=== PATIENT | male | born 1985 | race American Indian/Alaskan Native ===

== ENCOUNTER 2019-06-28 00:45 | Emergency (ER) | payer OTHER ==
[2019-06-28 00:55] VITALS: BP 151/94
--- NOTE | 2019-06-28 02:50 | Emergency Department Report ---
[facility] Chief Complaint: Eye Problems Stated Complaint: BOTH EYE IRRITATION/SWOLLEN Time Seen by Provider: 06/28/19 01:58 Duration: 3 Days Severity: mild Symptoms: Yes Eye Redness, Yes Mucous Drainage, No Eye Itching, No Blurred Vision, No Preceding URI, No H/O Allergic Rhinitis, No Contact Lens Use, No Trauma, No Fever, No Headache Other History: 33-year-old -[place] male presents to the emergency room for bilateral redness and irritation to eyes and started on Wednesday first started on the right eye now moved to the left eye. Patient states that he took someone is pink I medication but when he is taken 1 dose. Patient complains of watery eyes denies any itchiness or discharge. Does admit to a runny nose. 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 No other past medical history no known drug allergies. ED Review of Systems ROS: Stated complaint: BOTH EYE IRRITATION/SWOLLEN Other details as noted in HPI Comment: All other systems reviewed and negative ED Past Medical Hx - Past Medical History Previous Medical History?: No - Surgical History Past Surgical History?: No - Social History Smoking Status: Never Smoker Substance Use Type: None - Medications Home Medications: Home Medications Medication Instructions Recorded Confirmed Last Taken Type Erythromycin [Erythromycin Ophth 1 applic OP QID #1 tube 06/28/19 Unknown Rx Oint] Ketotifen Fumarate [Zaditor] 5 ml OP QDAY #1 bottle 06/28/19 Unknown Rx [facility] Exam - Exam General: Vital signs noted. No distress. Alert and acting appropriately. Eye Exam: Both Injection, Neither Eye Foreign Body, Neither Mucous Discharge, Neither Purulent Discharge, Neither Fluorescein Uptake, Neither Photophobia HEENT: Yes Nasal Congestion (and rhinorrhea) Remainder of HEENT: Normal Lungs: Yes Clear Lung Sounds ED Course Vital Signs 06/28/19 00:50 Temperature 98.4 F Pulse Rate 71 Respiratory 18 Rate Blood Pressure 151/94 O2 Sat by Pulse 98 Oximetry Critical care attestation.: If time is entered above; I have spent that time in minutes in the direct care of this critically ill patient, excluding procedure time. ED Disposition Clinical Impression: Conjunctivitis Qualifiers: Conjunctivitis type: acute Acute conjunctivitis type: unspecified Laterality: bilateral Qualified Code(s): H10.33 - Unspecified acute conjunctivitis, bilateral Disposition: - TO HOME OR SELFCARE Is pt being admited?: No Does the pt Need Aspirin: No Condition: Stable Instructions: Conjunctivitis (ED) Additional Instructions: Use eye medication as prescribed. Follow up with a machine preservative filler if symptoms persist or gets worse. Prescriptions: Erythromycin [Erythromycin Ophth Oint] 1 applic OP QID #1 tube Ketotifen Fumarate [Zaditor] 5 ml OP QDAY #1 bottle Referrals: LISE KHAN MD [Primary Care Provider] - 3-5 Days
== END 2019-06-28 03:15 | disposition home or self-care (01) ==
LOC: ED 00:45
DX: H10.33 Unspecified acute conjunctivitis, bilateral (principal)
CPT/HCPCS: 99281